=== PATIENT | male | born 1960 | race Caucasian/White ===

== ENCOUNTER → 2023-10-16 07:09 | Outpatient (REF) | payer BC, SELFPAY ==
[2023-10-16 08:17] LABS: % Basophils 1.3 % (0-2); % Eosinophils 7.7 % (0-6); % Immature Granulocytes 0.3 % (0-0.5); % Lymphocytes 18.1 % (20.5-51.1); % Monocytes 7.5 % (1.7-9.3); % Neutrophils 65.1 % (42.2-75.2); Absolute Basophils 0.1 10^3/uL (0-0.2); Absolute Eosinophils 0.6 10^3/uL (0-0.7); Absolute Lymphocytes 1.4 10^3/uL (1.2-3.4); Absolute Monocytes 0.6 10^3/uL (0.1-0.6); Absolute Neutrophils 5.2 10^3/uL (1.4-6.5); Hematocrit 45.6 % (39.0-52.0); Hemoglobin 15.5 g/dL (13.0-18.0); Mean Corpuscular Hgb 30.5 pg (27.0-31.0); Mean Corpuscular Volume 89.6 fL (80.0-94.0); Mean Platelet Volume 8.9 fL (7.4-10.4); Nucleated Red Blood Cells % 0 % (-); Platelet Count 334 10^3/uL (130-400); Red Blood Cell Count 5.09 10^6/uL (4.70-6.10); Red Cell Dist. Width 12.7 % (11.5-14.5); White Blood Cell Count 7.9 10^3/uL (4.8-10.8)
[2023-10-16 08:31] LABS: ALT (SGPT) 34 U/L (0-50); AST (SGOT) 37 U/L (17-59); Albumin 4.2 g/dl (3.5-5.0); Alkaline Phosphatase 62 U/L (38-126); Blood Urea Nitrogen 15 mg/dl (9-20); Calcium 9.6 mg/dl (8.4-10.2); Carbon Dioxide 31 mmol/L (22-30); Chloride 103 mmol/L (98-107); Glucose 126 mg/dl (70-99); HDL Cholesterol 51 mg/dl; LDL Cholesterol, Calculated 95 mg/dl; Potassium 5.6 mmol/L (3.5-5.1); Sodium 139 mmol/L (135-145); Total Bilirubin 0.9 mg/dl (0.2-1.3); Total Cholesterol 166 mg/dl (50-199); Total Protein 6.7 g/dl (6.3-8.2); Triglyceride 101 mg/dl (10-149); Very Low Density Lipoprotein 20 mg/dl (0-30); eGFR > 60.00
[2023-10-16 09:26] LABS: Glycohemoglobin (HgbA1c) 5.4 % (4.0-5.6)
== END ==
LOC: REG 07:09
PROVIDERS: ATTENDING PHYSICIAN Internal Medicine
DX: E78.5 Hyperlipidemia, unspecified (principal); R73.01 Impaired fasting glucose; K21.9 Gastro-esophageal reflux disease without esophagitis
CPT/HCPCS: 36415; 80053; 80061; 83036; 85025

== ENCOUNTER → 2023-11-13 06:25 | Outpatient (REF) | payer BC, SELFPAY | LOC: MRI 3T 06:25 | PROVIDERS: ATTENDING PHYSICIAN Specialist; FAMILY PHYSICIAN Internal Medicine | DX: M25.561 Pain in right knee (principal) | CPT/HCPCS: 73721 ==

== ENCOUNTER 2023-12-27 07:34 | Inpatient (IN) | payer BC, MEDICARE, SELFPAY ==
[2023-12-09 12:37] VITALS: BMI 39.1
[2023-12-09 14:15] LABS: Hematocrit 43.4 % (39.0-52.0); Mean Corp Hgb Conc. 34.6 g/dL (33.0-37.0); Mean Corpuscular Hgb 30.3 pg (27.0-31.0); Mean Corpuscular Volume 87.7 fL (80.0-94.0); Mean Platelet Volume 9.3 fL (7.4-10.4); Platelet Count 392 10^3/uL (130-400); Red Blood Cell Count 4.95 10^6/uL (4.70-6.10); Red Cell Dist. Width 12.6 % (11.5-14.5); White Blood Cell Count 8.6 10^3/uL (4.8-10.8)
[2023-12-09 14:44] LABS: ALT (SGPT) 33 U/L (0-50); AST (SGOT) 32 U/L (17-59); Albumin 4.3 g/dl (3.5-5.0); Alkaline Phosphatase 59 U/L (38-126); Blood Urea Nitrogen 22 mg/dl (9-20); Calcium 9.7 mg/dl (8.4-10.2); Carbon Dioxide 28 mmol/L (22-30); Chloride 105 mmol/L (98-107); Estimated Creatinine Clearance 111 ml/min; Glucose 126 mg/dl (70-99); Potassium 4.7 mmol/L (3.5-5.1); Sodium 144 mmol/L (135-145); Total Bilirubin 0.5 mg/dl (0.2-1.3); Total Protein 6.8 g/dl (6.3-8.2); eGFR > 60.00
[2023-12-10 08:49] LABS: Glycohemoglobin (HgbA1c) 5.7 % (4.0-5.6)
--- NOTE | 2023-12-24 12:35 | VNURNOTE ---
Rec'ed info from patient's insurance asking about VN home PT post op.
Called patient. He is scheduled for an elective R TKA on 12/26- [facility]. His plans are to go to outpatient PT at [facility] starting on . He has rides to/from PT x 2 weeks. He explained that he called his insurance company
only inquiring if they cover rides. He is NOT interested in home PT services. This author suggested utilizing [employer], [employer], or a Ride Share program (can look up online). Patient verbalized understanding. VN Intake dept updated.
Plan: Outpt PT after DC
[2023-12-27] VITALS (13 sets, daily range): BP systolic 124–173; BP diastolic 70–102; PULSE 68–72; O2SAT 94–95
[2023-12-27] MEDS: TYLENOL 650 MG PO ×4 (07:42→19:57)
[2023-12-27] MEDS: CELEBREX 200 MG PO (07:43)
[2023-12-27] MEDS: NORMOSOL-R/PLASMALYTE-A 1000 IV ×2 (07:46→12:05)
[2023-12-27] MEDS: DILAUDID 0.5 MG IV ×2 (11:26→11:51)
--- NOTE | 2023-12-27 11:35 | W.DS.TRANS ---
DC Summary - Head Counselor
-
Discharge Instructions:
Discharge Diagnosis/Procedures R TKA Dr. Love 12/27/23
Diet As tolerated
Activity With Walker
Driving Restrictions No driving
Bathing Restrictions OK to Shower
Other Services PT
Instructions:
Stand-Alone Forms: Total Hip/Knee Replacement D/C
Changes to Home Medications: Yes
Discharge Medications:
DC Medications w/original date entered in [employer]
zolpidem 10 mg tablet (Ambien) 10 mg PO HS Sleep 09/19/13
duloxetine 60 mg capsule,delayed release 60 mg PO DAILY Neurological Condition 11/29/19
montelukast 10 mg tablet 10 mg PO DAILY Lung/breathing issues 11/29/19
hydrochlorothiazide 12.5 mg capsule 12.5 mg PO DAILY Fluid retention/Swelling ##0 12/12/19
pantoprazole 40 mg tablet,delayed release 40 mg PO BID ##0 12/12/19
albuterol sulfate 90 mcg/actuation aerosol inhaler (Ventolin HFA) 2 puff inhalation Q4H PRN asthma 12/23/23
alprazolam 0.5 mg tablet 0.5 mg PO DAILY PRN anxiety 12/23/23
fluticasone propionate 115 mcg-salmeterol 21 mcg/actuation HFA inhaler (Advair HFA) 2 puff inhalation DAILY 12/23/23
mupirocin 2 % topical ointment 1 applic topical BID 12/23/23
aspirin 325 mg tablet 325 mg PO DAILY post op 12/24/23
cefadroxil 500 mg capsule 500 mg PO BID post op 12/24/23
celecoxib 100 mg capsule 100 mg PO BID post op 12/24/23
dexamethasone 4 mg tablet 4 mg PO BID post op 12/24/23
ondansetron HCl 4 mg tablet 4 mg PO Q6H PRN post op nausea 12/24/23
oxycodone 5 mg tablet 5 - 10 mg PO Q6H PRN post op pain 12/24/23
Saccharomyces boulardii 250 mg capsule (Florastor) 250 mg PO BID #1 cap 12/27/23
acetaminophen 500 mg tablet 1,000 mg (2 x 500 mg) PO QID #0 tabs 12/27/23
docusate sodium 100 mg capsule (Colace) 100 mg PO BID stool softner #1 cap 12/27/23
magnesium hydroxide 400 mg/5 mL oral suspension (Milk of Magnesia) 30 ml PO HS PRN Constipation #1 mL 12/27/23
sennosides 8.6 mg tablet (Senokot) 17.2 mg (2 x 8.6 mg) PO BID laxative #2 tabs 12/27/23
Home Medication Changes
aspirin 325 mg tablet 325 mg PO DAILY post op 12/24/23�
cefadroxil 500 mg capsule 500 mg PO BID post op 12/24/23�
celecoxib 100 mg capsule 100 mg PO BID post op 12/24/23�
dexamethasone 4 mg tablet 4 mg PO BID post op 12/24/23�
ondansetron HCl 4 mg tablet 4 mg PO Q6H PRN post op nausea 12/24/23�
oxycodone 5 mg tablet 5 - 10 mg PO Q6H PRN post op pain 12/24/23�
Pending Results: No
[2023-12-27] MEDS: ROXICODONE 5 MG PO ×3 (12:03→19:57)
--- NOTE | 2023-12-27 12:30 | PTCARENOTE ---
Pt received from the PACU via bed. Transport was w/o incident. Pt is AAOx3, HR sl Irreg., LCTA, resp. easy, pulse ox 97%RA. Pt's right knee with primaseal dressing w/Scant spotting, intact. ice pack applied as ordered to right knee. VSS, Pt is
afebrile. Pt instructed on plan of care, Pt verbalized understanding of instructions, call cash is within reach.
--- NOTE | 2023-12-27 12:38 | SUR.PHASEI ---
patient post op right total knee - with spinal, sensation to toes on arrival, BOWENS , follows commands, intially no pain then 10/19 - medicated with dilaudid with some relief, then recurrence - Dilaudid repeated and roxicodone given as ordered. O2
on during pacu - sats improved and discontinued, encourage deep breathing. to visit in pacu. no urge to void, unable to palpate bladder. - discharge to [address] [place] [address] with discomfort right thigh from tourniquet.
[2023-12-27] MEDS: SINGULAIR 10 MG PO (13:20)
[2023-12-27] MEDS: PROTONIX 40 MG PO ×2 (13:21→19:56)
[2023-12-27] MEDS: CYMBALTA DELAYED RELEASE 60 MG PO (13:21)
[2023-12-27] MEDS: FLOMAX 0.4 MG PO (13:21)
[2023-12-27] MEDS: VALIUM 5 MG PO (14:05)
[2023-12-27] MEDS: DECADRON 6 MG IV ×2 (14:05→20:15)
[2023-12-27] MEDS: TORADOL 15 MG IV ×2 (14:07→20:15)
[2023-12-27] MEDS: ULTRAM 50 MG PO ×3 (14:09→22:38)
[2023-12-27] MEDS: ASPIRIN 325 MG PO (17:20)
[2023-12-27] MEDS: ANCEF 5 IV (17:20)
[2023-12-27] MEDS: SENOKOT PO (19:56)
[2023-12-27] MEDS: COLACE 100 MG PO (19:56)
[2023-12-27] MEDS: BACTROBAN 2% OINTMENT 1 APPLIC NASAL (19:56)
[2023-12-27] MEDS: AMBIEN 10 MG PO (22:38)
[2023-12-28] MEDS: ANCEF 5 IV (00:14)
[2023-12-28] MEDS: FLUSH (NSS) 2 FLUSH IV (00:14)
[2023-12-28] MEDS: TYLENOL PO (01:02)
[2023-12-28 03:35] VITALS: BP 141/94
[2023-12-28] MEDS: TYLENOL 650 MG PO ×3 (04:26→11:16)
[2023-12-28] MEDS: ROXICODONE 5 MG PO (04:30)
[2023-12-28 07:45] VITALS: BP 136/75
[2023-12-28] MEDS: PROTONIX 40 MG PO (08:14)
[2023-12-28] MEDS: SENOKOT 17.2 MG PO (08:14)
[2023-12-28] MEDS: CELEBREX 200 MG PO (08:14)
[2023-12-28] MEDS: COLACE 100 MG PO (08:14)
[2023-12-28] MEDS: CYMBALTA DELAYED RELEASE 60 MG PO (08:14)
[2023-12-28] MEDS: ASPIRIN 325 MG PO (08:15)
[2023-12-28] MEDS: SINGULAIR 10 MG PO (08:15)
[2023-12-28] MEDS: BACTROBAN 2% OINTMENT 1 APPLIC NASAL (08:15)
[2023-12-28] MEDS: ULTRAM 50 MG PO ×2 (08:15→12:38)
[2023-12-28] MEDS: TORADOL 15 MG IV (08:16)
[2023-12-28] MEDS: DECADRON 6 MG IV (08:42)
[2023-12-28] MEDS: ROXICODONE 10 MG PO (08:42)
[2023-12-28 09:29] VITALS: BP 140/80; PULSE 120
[2023-12-28 10:11] VITALS: BP 141/79; PULSE 116
--- NOTE | 2023-12-28 10:13 | CM ---
Reviewed the chart notes and spoke with the patient and his spouse at the bedside. The patient resides with his spouse in a one story home with six steps to enter and a full basement accessed by a flight of steps down. The patient has in the home
a rolling walker, cane, and raised toilet seat. The patient reports no VN or SNF in the past. The patient confirmed his pharmacy of choice is the [facility]. The patient anticipates being discharged today to home with
outpatient therapy. The patient's spouse will provide transportation home. CM continues to be available to patient/family and is monitoring medical plan for needs at discharge.
Plan: Discharge to home today.
[2023-12-28 11:25] VITALS: BP 135/66
--- NOTE | 2023-12-28 11:41 | W.PN.ORTHO ---
Today's Communication / Plan
-
d/c
Assessment
.
Distal Motor Intact: Yes
Dressing:
Clean, dry and intact.
Plan
.
Surgery / Date: Amos Love 12/27/23
DVT Prophylaxis: Aspirin
Activity:
Out of bed.
PT/OT
Discharge Plan: Home w/ Outpatient PT
Subjective
.
.:
Patient resting comfortably.
Vital Signs and Labs
.
Vital Signs and Labs:
Lab Results
12/09/23 12:46
12/09/23 12:46
Temp Pulse Resp BP Pulse Ox
98.3 F 113 16 136/75 92
12/28/23 07:45 12/28/23 07:45 12/28/23 07:45 12/28/23 07:45 12/28/23 07:45
Non-invasive Hgb result: 14.0
Physical Exam
-
HEENT: No pallor, cyanosis, or jaundice. Throat clear.
NECK: Supple. No JVD.
RESPIRATORY: Lungs clear to auscultation.
CVS: S1, S2 normal. RRR.� No murmur, rub or gallop.
ABDOMEN: Soft, non-tender. No distension. BS+/normal.
EXTREMITIES: strength equal, no calf pain with palpation
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
== END 2023-12-28 12:50 | disposition home or self-care (01) | DRG 470 ==
LOC: 2 SOUTH 07:34
PROVIDERS: ADMITTING PHYSICIAN Specialist; FAMILY PHYSICIAN Internal Medicine
PROC: 0SRC0J9 Replacement of Right Knee Joint with Synthetic Substitute, Cemented, Open Approach (ICD-10-PCS; 2023-12-27)
DX: M17.11 Unilateral primary osteoarthritis, right knee (principal)
CPT/HCPCS: 36415; 73560; 80053; 83036; 85027; 87070; 93005; 97110; 97116; 97162; 97166; 97530; 97535; C1713; C1776

== ENCOUNTER → 2024-01-07 11:05 | Outpatient (REF) | payer BC, MEDICARE, SELFPAY | LOC: RAD 11:05 | PROVIDERS: ATTENDING PHYSICIAN Internal Medicine | DX: M79.672 Pain in left foot (principal) | CPT/HCPCS: 73630 ==

== ENCOUNTER 2024-01-07 11:11 | Outpatient (RCR) | payer BC, MEDICARE, SELFPAY | END 2024-01-07 23:59 | disposition home or self-care (01) | LOC: RPT 11:11 | PROVIDERS: ATTENDING PHYSICIAN Specialist; FAMILY PHYSICIAN Internal Medicine | DX: Z96.651 Presence of right artificial knee joint (principal) | CPT/HCPCS: 97010; 97110; 97140; 97161; 97535 ==

== ENCOUNTER 2024-02-08 10:52 | Outpatient (RCR) | payer BC, MEDICARE, SELFPAY | END 2024-02-08 23:59 | disposition home or self-care (01) | LOC: RPT 10:52 | PROVIDERS: ATTENDING PHYSICIAN Specialist; FAMILY PHYSICIAN Internal Medicine | DX: Z47.1 Aftercare following joint replacement surgery (principal); Z96.651 Presence of right artificial knee joint | CPT/HCPCS: 97010; 97110; 97116; 97530 ==

== ENCOUNTER 2024-02-18 11:47 | Emergency (ER) | payer BC, MEDICARE, SELFPAY ==
[2024-02-18 11:49] VITALS: BP 149/97
--- NOTE | 2024-02-18 12:22 | ED.MUSCINJ ---
HPI-Injury
General
Chief Complaint: Musculo-Skeletal Complaint
Source: patient
Exam Limitations: none
Time Seen by Provider: 02/18/24 12:06
Nursing documentation reviewed up to this point in time: agreed with
History of Present Illness-Injury
Initial Injury comments:
63-year-old male with history of right total knee replacement on 12/[address] into this hospital for P/T when his left ankle gave out and he fell twisting the right knee. He was able to get up and ambulate afterwards. He states his left
ankle is 'a little sore,' but declines when offered to evaluate the ankle, stating 'it is fine.'
He states he has pain in the lateral aspect of his right knee, he is able to weight-bear fairly comfortably.
Past History
Past History
ED Past Medical History: GERD, HTN and Psychiatric (anxiety/depression)
ED Past Surgical History: Orthopedic
Social History
Tobacco: Non-smoker
Alcohol: None
Personal:
Living: with family
Employment: Retired
Review of Systems
Review of Systems
Allergies reviewed?: Yes
All Other Systems: ROS reviewed and negative except as documented in HPI and ROS
Musculoskeletal: Reports other (pain right knee, mild soreness left ankle); Denies neck pain or back pain
Skin: Reports no symptoms
Neurological: Reports no symptoms
Phy Exam
Physical Exam
Physical Exam:
GENERAL: No acute distress. A&Ox3.
RESPIRATORY: Regular respirations, nonlabored, lungs clear.
CARDIOVASCULAR: Regular rate and rhythm, no murmurs, no rubs.
MUSCULOSKELETAL: Tender to palpate lateral aspect of right knee over tibial tuberosity. Mild swelling post op. moving the knee joint well. Well perfused. Weight bearing comfortably, ambulates well.
SKIN: Warm, dry, pink
PSYCH: Normal mood and affect. Well kept, interactive and appropriate
NEUROLOGIC: Awake, alert and oriented. No focal neurological deficits
Injury Course
Orders/Labs/Results
Orders:
Orders
02/18/24 11:53
CR Knee- Right 4 Or More View* Urgent
Comment:
Reason For Exam: fall with recent knee replacement 12/26
MDM/Problems Addressed
Differential Diagnosis Includes:
Knee sprain, fracture
MDM/Problems Addressed:
63-year-old male with history of right total knee replacement on 12/[address] into this hospital for P/T when his left ankle gave out and he fell twisting the right knee. He was able to get up and ambulate afterwards. He states his left
ankle is 'a little sore,' but declines when offered to evaluate the ankle, stating 'it is fine.'
He states he has pain in the lateral aspect of his right knee, he is able to weight-bear fairly comfortably.
He kindly declines when offered to evaluate his left ankle. Full ROM weight bearing comfortably
Clearly a mechanical fall
Knee xray neg
Pt applied own vadim wrap and ice pack. Ambulating well.
Pt has f/u appt with Dr. Love in 6 days. Instructed no P/T until further advised by Dr. Olvera
*Critical Care Note
Total Time (30-74mins, 75-104mins- exclusive of procedures): Not Applicable
ED Attending Note
-
Portions of this chart may have been created with voice recognition software.� Occasional wrong word or��sound alike� substitutions may have occurred due to the inherent limitations of voice recognition software.
Discharge Plan
Departure
Patient Disposition: Home (Routine Discharge)
Date of Disposition: 02/18/24
Time of Disposition: 12:20
Patient with high blood pressure during this ER visit?: No
Condition: Good
Discharge Problem:
Soft tissue injury of right knee
Instructions: Knee Sprain (DC), Using Cold for Pain
Prescriptions:
No Action
zolpidem [Ambien] 10 MG tablet
10 mg PO HS
montelukast 10 MG tablet
10 mg PO DAILY
duloxetine 60 MG capsule,delayed release(DR/EC)
60 mg PO DAILY
pantoprazole 40 MG tablet,delayed release (DR/EC)
40 mg PO BID Qty: 0 0RF
hydrochlorothiazide 12.5 MG capsule
12.5 mg PO DAILY Qty: 0 0RF
alprazolam 0.5 mg Tablet
0.5 mg PO DAILY PRN (Reason: anxiety)
mupirocin 2 % Ointment
1 applic TOPICAL BID
Patient Comments:
patient started on 12/24/23 bid , did apply thia am 12/27/23
albuterol sulfate [Ventolin HFA] 90 mcg/actuation Hfa Aerosol Inhaler
2 puff INHALATION Q4H PRN (Reason: asthma)
fluticasone propion-salmeterol [Advair HFA] 115-21 mcg/actuation Hfa Aerosol Inhaler
2 puff INHALATION DAILY
aspirin 325 mg Tablet
325 mg PO DAILY
Patient Comments:
*
Rx Instructions:
x30 days
ondansetron HCl 4 mg Tablet
4 mg PO Q6H PRN (Reason: post op nausea)
Patient Comments:
*
Rx Instructions:
x30 days
cefadroxil 500 mg Capsule
500 mg PO BID
Patient Comments:
*
Rx Instructions:
x7 days
dexamethasone 4 mg Tablet
4 mg PO BID
Patient Comments:
*
Rx Instructions:
x3 days
celecoxib 100 mg Capsule
100 mg PO BID
Patient Comments:
*
Rx Instructions:
x15 days
oxycodone 5 mg Tablet
5 - 10 mg PO Q6H PRN (Reason: post op pain)
Patient Comments:
*
acetaminophen 500 MG tablet
1,000 mg PO QID Qty: 0 0RF
Rx Instructions:
Do not exceed >4000 mg daily
sennosides [Senokot] 8.6 mg tablet
17.2 mg PO BID Qty: 2 0RF
magnesium hydroxide [Milk of Magnesia] 400 mg/5 mL suspension
30 ml PO HS PRN (Reason: Constipation) Qty: 1 0RF
docusate sodium [Colace] 100 mg capsule
100 mg PO BID Qty: 1 0RF
Saccharomyces boulardii [Florastor] 250 mg capsule
250 mg PO BID Qty: 1 0RF
tramadol 50 mg tablet
50 mg PO QID Qty: 30 0RF
Rx Instructions:
Dx joint replacement
Referrals:
Leonel Love MD [Active] - Keep scheduled appt
BLANCA GUTIERREZ MD [Family Provider] -
Activity Restrictions/Additional Instructions:
As we discussed, your x-ray shows nothing broken or out of place.
Continue with the Vadim wrap, cold compresses, your pain medication and keep your appoint with Dr. Love for next week.
No P/T until further advised by Dr. Love
Interventions
Interventions:
*Risk Screen - Suicide Last Done: 02/18/24 11:49
*General Assessment Last Done: 02/18/24 11:49
*Neglect/Abuse Screening Last Done: 02/18/24 12:24
ED- Fall Risk Assessment Last Done: 02/18/24 12:41
*ED COVID-19 Vaccine History Last Done: 02/18/24 11:49
*Nursing Disposition Last Done: 02/18/24 12:41
ED-Musculoskeletal Assessment Last Done: 02/18/24 12:24
Discharge Date and Time
Discharge Date/Time: 02/18/24 12:42
Print Language: SINHALA
== END 2024-02-18 12:42 | disposition home or self-care (01) ==
LOC: EMR 11:47
PROVIDERS: EMERGENCY PHYSICIAN Emergency Medicine; FAMILY PHYSICIAN Internal Medicine
DX: S89.91XA Unspecified injury of right lower leg, initial encounter (principal); W19.XXXA Unspecified fall, initial encounter; K21.9 Gastro-esophageal reflux disease without esophagitis; I10 Essential (primary) hypertension; F41.8 Other specified anxiety disorders; Z96.651 Presence of right artificial knee joint
CPT/HCPCS: 99283; 73564

== ENCOUNTER 2024-03-10 10:52 | Outpatient (RCR) | payer BC, MEDICARE, SELFPAY | END 2024-03-10 23:59 | disposition home or self-care (01) | LOC: RPT 10:52 | PROVIDERS: ATTENDING PHYSICIAN Specialist; FAMILY PHYSICIAN Internal Medicine | DX: Z47.1 Aftercare following joint replacement surgery (principal); R26.89 Other abnormalities of gait and mobility; M25.561 Pain in right knee; M62.81 Muscle weakness (generalized); Z96.651 Presence of right artificial knee joint | CPT/HCPCS: 97010; 97110; 97140; 97530 ==

== ENCOUNTER 2024-04-06 10:33 | Outpatient (RCR) | payer BC, MEDICARE, SELFPAY | END 2024-04-06 23:59 | disposition home or self-care (01) | LOC: RPT 10:33 | PROVIDERS: ATTENDING PHYSICIAN Specialist; FAMILY PHYSICIAN Internal Medicine | DX: Z47.1 Aftercare following joint replacement surgery (principal); R26.89 Other abnormalities of gait and mobility; M25.561 Pain in right knee; M62.81 Muscle weakness (generalized); Z96.651 Presence of right artificial knee joint | CPT/HCPCS: 97110; 97140; 97530 ==

== ENCOUNTER → 2024-04-20 06:33 | Outpatient (REF) | payer BC, MEDICARE, SELFPAY ==
[2024-04-20 10:09] LABS: % Basophils 1.1 % (0-2); % Eosinophils 4.8 % (0-6); % Immature Granulocytes 0.3 % (0-0.5); % Lymphocytes 21.2 % (20.5-51.1); % Neutrophils 64.6 % (42.2-75.2); Absolute Basophils 0.1 10^3/uL (0-0.2); Absolute Eosinophils 0.4 10^3/uL (0-0.7); Absolute Lymphocytes 1.9 10^3/uL (1.2-3.4); Absolute Monocytes 0.7 10^3/uL (0.1-0.6); Absolute Neutrophils 5.7 10^3/uL (1.4-6.5); Hematocrit 46.5 % (39.0-52.0); Hemoglobin 15.4 g/dL (13.0-18.0); Mean Corp Hgb Conc. 33.1 g/dL (33.0-37.0); Mean Corpuscular Hgb 29.8 pg (27.0-31.0); Mean Corpuscular Volume 90.1 fL (80.0-94.0); Mean Platelet Volume 8.9 fL (7.4-10.4); Nucleated Red Blood Cells % 0 % (-); Platelet Count 355 10^3/uL (130-400); Red Blood Cell Count 5.16 10^6/uL (4.70-6.10); Red Cell Dist. Width 12.2 % (11.5-14.5); White Blood Cell Count 8.8 10^3/uL (4.8-10.8)
[2024-04-20 10:46] LABS: ALT (SGPT) 35 U/L (0-50); AST (SGOT) 31 U/L (17-59); Albumin 4.3 g/dl (3.5-5.0); Alkaline Phosphatase 61 U/L (38-126); Blood Urea Nitrogen 21 mg/dl (9-20); Calcium 9.4 mg/dl (8.4-10.2); Carbon Dioxide 30 mmol/L (22-30); Chloride 104 mmol/L (98-107); Glucose 117 mg/dl (70-99); HDL Cholesterol 45 mg/dl; LDL Cholesterol, Calculated 95 mg/dl; Potassium 4.2 mmol/L (3.5-5.1); Sodium 142 mmol/L (135-145); Total Bilirubin 0.8 mg/dl (0.2-1.3); Total Cholesterol 164 mg/dl (50-199); Triglyceride 121 mg/dl (10-149); Very Low Density Lipoprotein 24 mg/dl (0-30); eGFR > 60.00
[2024-04-20 10:48] LABS: Glycohemoglobin (HgbA1c) 5.8 % (4.0-5.6)
== END ==
LOC: HWLAB 06:33
PROVIDERS: ATTENDING PHYSICIAN Internal Medicine
DX: E78.5 Hyperlipidemia, unspecified (principal); R73.01 Impaired fasting glucose; K21.9 Gastro-esophageal reflux disease without esophagitis
CPT/HCPCS: 36415; 80053; 80061; 83036; 85025

== ENCOUNTER 2024-04-27 11:00 | Outpatient (RCR) | payer BC, MEDICARE, SELFPAY | END 2024-04-27 23:59 | disposition home or self-care (01) | LOC: RPT 11:00 | PROVIDERS: ATTENDING PHYSICIAN Specialist; FAMILY PHYSICIAN Internal Medicine | DX: Z47.1 Aftercare following joint replacement surgery (principal); R26.89 Other abnormalities of gait and mobility; M25.561 Pain in right knee; M62.81 Muscle weakness (generalized); Z96.651 Presence of right artificial knee joint | CPT/HCPCS: 97110; 97530; 97535 ==

== ENCOUNTER 2024-10-17 06:19 | Day surgery (SDC) | payer BC, MEDICARE, SELFPAY | END 2024-10-17 09:10 | disposition home or self-care (01) | LOC: GI 06:19 | PROVIDERS: ATTENDING PHYSICIAN Internal Medicine Gastroenterology | DX: R12 Heartburn (principal); K22.89 Other specified disease of esophagus; K31.89 Other diseases of stomach and duodenum; K31.7 Polyp of stomach and duodenum; K20.90 Esophagitis, unspecified without bleeding | CPT/HCPCS: 43239; 88305 ==

== ENCOUNTER → 2025-01-04 06:06 | Outpatient (REF) | payer BC, MEDICARE, SELFPAY ==
[2025-01-04 09:33] LABS: Hematocrit 45.8 % (39.0-52.0); Hemoglobin 15.3 g/dL (13.0-18.0); Mean Corp Hgb Conc. 33.4 g/dL (33.0-37.0); Mean Corpuscular Volume 90.9 fL (80.0-94.0); Nucleated Red Blood Cells % 0 % (-); Platelet Count 347 10^3/uL (130-400); Red Cell Dist. Width 13.0 % (11.5-14.5)
[2025-01-04 10:27] LABS: ALT (SGPT) 24 U/L (0-50); AST (SGOT) 25 U/L (17-59); Albumin 4.0 g/dl (3.5-5.0); Alkaline Phosphatase 56 U/L (38-126); Blood Urea Nitrogen 20 mg/dl (9-20); Calcium 9.7 mg/dl (8.4-10.2); Carbon Dioxide 29 mmol/L (22-30); Chloride 106 mmol/L (98-107); Glucose 116 mg/dl (70-99); HDL Cholesterol 45 mg/dl; LDL Cholesterol, Calculated 83 mg/dl; Potassium 4.9 mmol/L (3.5-5.1); Sodium 142 mmol/L (135-145); Total Protein 6.8 g/dl (6.3-8.2); Very Low Density Lipoprotein 21 mg/dl (0-30); eGFR > 60.00
[2025-01-04 11:09] LABS: PSA, Total - Screen 1.10 ng/ml (0.0-4.0)
[2025-01-04 11:48] LABS: Glycohemoglobin (HgbA1c) 5.2 % (4.0-5.6)
== END ==
LOC: HWLAB 06:06
PROVIDERS: ATTENDING PHYSICIAN Internal Medicine
DX: E78.5 Hyperlipidemia, unspecified (principal); R73.01 Impaired fasting glucose; K21.9 Gastro-esophageal reflux disease without esophagitis; Z12.5 Encounter for screening for malignant neoplasm of prostate
CPT/HCPCS: 36415; 80053; 80061; 83036; 85025; G0103